=== PATIENT | female | born 1985 | race Caucasian/White ===

== ENCOUNTER 2023-05-24 14:20 | Emergency (ER) | payer BC ==
[2023-05-24] MEDS ORDERED: diphenhydrAMINE 25 MG CAP ONE (14:32)
[2023-05-24] MEDS ORDERED: Famotidine 20 MG TAB ONE ×2 (14:32→14:33)
[2023-05-24] MEDS ORDERED: Dexamethasone 10 MG/ML VIAL ONE (14:32)
== END 2023-05-24 15:58 | disposition home or self-care (01) ==
LOC: MADERS 14:20
DX: T78.1XXA Other adverse food reactions, not elsewhere classified, initial encounter (principal)
CPT/HCPCS: 99283; J1100